=== PATIENT | male | born 1965 | race Caucasian/White ===

== ENCOUNTER 2022-02-24 06:58 | Day surgery (SDC) | payer OTHER, SELFPAY ==
[~2022-02-24] VITALS: Ht 167.6 cm; Wt 70.3 kg
[2022-02-24] MEDS ORDERED: fentaNYL citrate 0.05 MG/ML VIAL ONE ×2 (08:04)
[2022-02-24] MEDS ORDERED: diphenhydrAMINE 50 MG/ML VIAL ONE (08:04)
[2022-02-24] MEDS ORDERED: MIDAZOLAM 5 MG/5 ML VIAL ONE (08:05)
[2022-02-24] MEDS ORDERED: LIDOCAINE 2% 100 MG/5 ML UJET TP ONE ×2 (08:05)
[2022-02-24] MEDS ORDERED: SIMETHICONE 40 MG/0.6 ML ONE (08:43)
[2022-02-24] MEDS ORDERED: MIDAZOLAM 2 MG/2 ML VIAL IVP ONE (16:25)
[2022-02-24] MEDS ORDERED: fentaNYL citrate 0.05 MG/ML VIAL IVP ONE (16:25)
== END 2022-02-24 10:10 | disposition home or self-care (01) ==
LOC: MOR 06:58 → MMU 06:59 → MOR 10:10
PROVIDERS: ATTEND Internal Medicine Gastroenterology
DX: Z12.11 Encounter for screening for malignant neoplasm of colon (principal); I10 Essential (primary) hypertension; Z20.822 Contact with and (suspected) exposure to COVID-19; Z79.899 Other long term (current) drug therapy
CPT/HCPCS: 45378; 87426; J2250; J3010; J1200